=== PATIENT | female | born 1990 | race African-American/Black ===

== ENCOUNTER 2016-06-04 12:56 | Emergency (ER) | payer MEDICAID, OTHER ==
[~2016-06-04] VITALS: Ht 170.2 cm; Wt 87.5 kg
[2016-06-04 13:11] VITALS: BP 121/84
== END 2016-06-04 16:15 | disposition home or self-care (01) ==
LOC: ER 13:01
DX: J20.9 Acute bronchitis, unspecified (principal)

== ENCOUNTER 2022-01-16 00:23 | Emergency (ER) | payer MEDICAID ==
[~2022-01-16] VITALS: Ht 170.2 cm; Wt 93.1 kg
[2022-01-16 02:40] LABS: Basophils # (auto) 0 10 ^3/uL (0-0.2); Basophils % (auto) 0.6 % (0.0-2.0); Eosinophils # (auto) 0.1 10 ^3/uL (0-0.8); Eosinophils % (auto) 1.7 % (0.0-7.0); Hematocrit 36.8 % (36.0-46.0); Hemoglobin 12.4 g/dL (12.2-16.2); Lymphocytes # (auto) 1.8 10 ^3/uL (0.4-5.4); Lymphocytes % (auto) 22.2 % (10.0-50.0); Mean Corpuscular Hemoglobin 31.3 pg (28.0-32.0); Mean Corpuscular Hgb Conc. 33.8 g/dL (32.0-36.0); Mean Corpuscular Volume 92.7 fL (80.0-100.0); Monocytes # (auto) 0.5 10 ^3/uL (0-1.3); Monocytes % (auto) 5.7 % (0.0-12.0); Neutrophils # (auto) 5.8 10 ^3/uL (1.6-8.6); Neutrophils % (auto) 69.8 % (37.0-80.0); Nucleated Red Blood Cells % 0.1 %; Red Blood Cells 3.97 10^6/uL (4.0-5.20); Red Cell Distribution Width 13.8 % (11.8-14.3); White Blood Cell 8.3 10^3/uL (4.4-10.8)
[2022-01-16 02:55] LABS: Calcium 8.7 mg/dL (8.5-10.1); Potassium 3.3 mmol/L (3.5-5.1)
[2022-01-16 02:57] LABS: BUN/Creatinine Ratio 9.7
[2022-01-16 03:00] LABS: Bilirubin, Total 0.2 mg/dL (0.2-1.0); Total Protein 6.9 g/dL (6.4-8.2)
[2022-01-16] MEDS ORDERED: POTASSIUM EFFERVESENT TAB 25 MEQ PO ONE (06:30)
[2022-01-16] MEDS ORDERED: CEPH-510 PO (07:21)
[2022-01-16] MEDS ORDERED: BACDST PO (07:21)
[2022-01-16 07:46] LABS: Urine Bacteria NONE SEEN /hpf (None Seen); Urine Blood 3+ /uL (Negative); Urine Mucus FEW (None Seen); Urine Specific Gravity 1.032 (1.001-1.035); Urine WBC 8 /hpf (0 - 5)
[2022-01-16 08:00] VITALS: BP 119/61
[2022-01-16] MEDS ORDERED: HYDROcodone-ACET 5/325MG TAB PO ONE (08:15)
== END 2022-01-16 08:44 | disposition home or self-care (01) ==
LOC: ER 00:23
DX: N61.1 Abscess of the breast and nipple (principal); N61.0 Mastitis without abscess
CPT/HCPCS: 36415; 80053; 81001; 81025; 83605; 84702; 85025; 87040

== ENCOUNTER 2022-12-21 12:42 | Emergency (ER) | payer MEDICAID ==
[~2022-12-21] VITALS: Ht 170.2 cm; Wt 106.7 kg
[~2022-12-21 12:42] MED LIST: BACDST PO; CEPH-510 PO
[2022-12-21 13:09] VITALS: BP 136/76; PULSE 77; RESP 18; O2SAT 97
== END 2022-12-21 14:15 | disposition left against medical advice (07) ==
LOC: ER 12:42
DX: S00.86XA Insect bite (nonvenomous) of other part of head, initial encounter (principal); Z53.21 Procedure and treatment not carried out due to patient leaving prior to being seen by health care provider; W57.XXXA Bitten or stung by nonvenomous insect and other nonvenomous arthropods, initial encounter; Y93.89 Activity, other specified; Y92.89 Other specified places as the place of occurrence of the external cause; Y99.8 Other external cause status